=== PATIENT | male | born 1975 | race Hispanic/Latino ===

== ENCOUNTER 2016-09-05 19:41 | Emergency (ER) | payer MEDICARE, MEDICAID ==
[2016-09-05] MEDS ORDERED: HYDROcodone/Acetaminophen 10/325 mg Tablet ONE (21:57)
[2016-09-05] MEDS ORDERED: Naproxen 500 MG TAB ONE (21:57)
--- NOTE | 2016-09-05 22:01 | RAD ---
FOUR VIEWS LEFT KNEE: Date: 09-05-16 History: Left knee pain. FINDINGS: AP, lateral, and both oblique views of the left knee obtained. The left knee is unremarkable. No usha dence of fracture, subluxations, or bony lesions seen. IMPRESSION: Normal four views left knee. POS: [facility]
== END 2016-09-05 21:58 | disposition home or self-care (01) ==
LOC: MADERS 19:41
DX: S83.422A Sprain of lateral collateral ligament of left knee, initial encounter (principal); F17.210 Nicotine dependence, cigarettes, uncomplicated; X58.XXXA Exposure to other specified factors, initial encounter

== ENCOUNTER 2024-07-27 04:56 | Emergency (ER) | payer MEDICAID, MEDICARE, OTHER ==
[2024-07-27] MEDS ORDERED: Ketorolac Tromethamine 30 MG (1 mL) VIAL ONE (05:40)
[2024-07-27 05:52] LABS: #Basophils 0.2 thou/uL (0.0-0.2); #Eosinophils 0.7 thou/uL (0.0-0.7); #Lymphocytes 2.3 thou/uL (1.20-3.40); #Neutrophils 4.4 thou/uL (1.40-6.50); %Basophils 1.9 % (0.0-1.0); %Eosinophils 8.1 % (0.0-10.0); %Lymphocytes 26.8 % (21.0-51.0); %Monocytes 11.6 % (0.0-10.0); %Neutrophils 51.6 % (42.0-75.0); Hematocrit 43.9 % (42.0-52.0); Hemoglobin 13.9 g/dL (14.0-18.0); Mean Corpuscular HGB CONC 31.8 g/dL (32.0-36.0); Mean Corpuscular Hemoglobin 28.4 pg (27.0-31.0); Mean Corpuscular Volume 89.5 fl (78.0-98.0); Platelet Count 281 10x3/uL (130-400); RBC Distribution Width 12.8 % (11.5-14.5); White Blood Cell (WBC) Count 8.6 10x3/uL (4.8-10.8)
[2024-07-27 06:11] LABS: ALT (SGPT) 39 U/L (Less than 45); AST (SGOT) 59 U/L (11-34); Albumin 4.3 g/dL (3.1-4.5); Alkaline Phosphatase 115 U/L (40-110); Anion Gap 17 mmol/L (10-20); BUN (Urea Nitrogen) 18 mg/dL (8.9-20.6); Bilirubin, Total 1.5 mg/dL (0.3-1.2); Calc. Creatinine Clearance 0 mL/min (70-130); Calcium 9.4 mg/dL (7.8-10.44); Carbon Dioxide 21 mmol/L (22-29); Chloride 103 mmol/L (98-107); Estimated GFR 118; Globulin 3.8 g/dL (2.4-3.5); Glucose 76 mg/dL (70-105); Protein, Total 8.1 g/dL (6.0-8.3); Sodium 137 mmol/L (136-145)
== END 2024-07-27 06:30 | disposition home or self-care (01) ==
LOC: MADERS 04:56
DX: S90.822A Blister (nonthermal), left foot, initial encounter (principal); S90.821A Blister (nonthermal), right foot, initial encounter; Z55.6 Problems related to health literacy; X58.XXXA Exposure to other specified factors, initial encounter
CPT/HCPCS: 80053; 85025; 96374; J1885